=== PATIENT | male | born 1995 | race Caucasian/White ===

== ENCOUNTER 2018-01-11 12:55 | Emergency (ER) | payer OTHER, SELFPAY ==
--- NOTE | 2018-01-11 12:15 | RAD_ITS ---
STUDY: X-RAY - LEFT HUMERUS REASON FOR EXAM: Male, 22 years old. Mental piece in arm. TECHNIQUE: 2 view(s) of the humerus. COMPARISON: None. FINDINGS: Normal visualized humerus. There is no demonstrated fracture or osseous destructive process. The shoulder and elbow are intact. There is a 3 mm metallic foreign body in the lateral soft tissues over the volar aspect of the upper arm, approximately 5 cm above the antecubital space. RAD/Humerus min 2 Views IMPRESSION: 1. Metallic foreign body in the soft tissues as described. 2. Normal humerus. Electronically Signed: Rosalino Fisher DO at 15:02 EDT Tel [phone], Service support ,
--- NOTE | 2018-01-11 12:55 | DT_ITS ---
This patient was seen during an EMR downtime January 07, 2018 - January 14, 2018. This patient may have a combination of paper and electronic documentation or all paper documentation. All documentation is viewable within the e-chart portion of [facility] for each patient visit.
--- NOTE | 2018-01-11 13:45 | RAD_ITS ---
STUDY: X-RAY - LEFT ELBOW REASON FOR EXAM: Male, 22 years old. UN SUCESSFUL FORIEGN BODY REMOVAL/ LOCATION TECHNIQUE: 15 view(s) of the elbow. COMPARISON: None. FINDINGS: Normal visualized humerus, radius and ulna. Normal radiocapitellar and ulnotrochlear articulations. Foreign body is seen within the soft tissues near the medial aspect of the distal humerus metaphysis. RAD/Elbow min 3 Views IMPRESSION: Foreign body is seen within the soft tissues near the medial aspect of the distal humerus metaphysis. Electronically Signed: Karen Duran MD at 13:58 EDT Tel , Service support ,
== END 2018-01-11 14:12 | disposition home or self-care (01) ==
LOC: ED 17:28
PROVIDERS: Emergency Provider Emergency Medicine
DX: M79.5 Residual foreign body in soft tissue (principal)
CPT/HCPCS: 24200; 10120; 73060; 73080; 76000; 90715; 99282

== ENCOUNTER → 2025-02-27 | Outpatient (CLI) | payer OTHER, SELFPAY ==
--- NOTE | 2025-02-27 | US_ITS ---
PROCEDURE: TESTICULAR WITH ARTERIAL FLOW 02/27/2025 REASON FOR EXAM: TESTICULAR PAIN TECHNIQUE: TESTICULAR WITH ARTERIAL FLOW COMPARISON: No FINDINGS: The right testicle measures 2 x 3 x 5 cm, homogeneous echogenicity with good blood flow. Normal epididymis overall with a 1 mm cyst. No hydrocele or varicocele. The left testicle measures 2 x 4 x 5 cm, homogeneous echogenicity with good blood flow. Normal epididymis. No hydrocele. There is a varicocele. Scrotal dyan incidentally noted. US/Testicular with Arterial Flow IMPRESSION: Unremarkable testicles. Left-sided varicocele. Reading Location: [place] [id number]
== END | disposition home or self-care (01) ==
PROVIDERS: Referring Provider Internal Medicine; Visit Provider Internal Medicine
DX: N50.819 Testicular pain, unspecified (principal); I86.1 Scrotal varices
CPT/HCPCS: 76870; 93976